=== PATIENT | female | born 2000 | race Two or more races ===

== ENCOUNTER 2025-04-03 14:52 | Outpatient (CLI) | payer OTHER | END 2025-04-03 14:59 | disposition home or self-care (01) | LOC: PRENATAL 14:52 | PROVIDERS: ATTEND Obstetrics & Gynecology Maternal & Fetal Medicine | DX: O44.02 Complete placenta previa NOS or without hemorrhage, second trimester (principal); O28.1 Abnormal biochemical finding on antenatal screening of mother; Z3A.21 21 weeks gestation of pregnancy ==